=== PATIENT | male | born 1945 | race Caucasian/White ===

== ENCOUNTER 2019-10-01 | Emergency (ER) | payer MEDICARE ==
[2019-10-01] MEDS ORDERED: CHOLESTEROL PILL PO (03:24)
[2019-10-01 04:16] LABS: HEMATOCRIT 44.8 % (39.0-50.0); HEMOGLOBIN 14.9 g/dl (14.0-18.0); IMMATURE GRANULOCYTES 0.2 % (0.0-5.0); MEAN CELL VOLUME 96.6 fL CALC (80.0-100.0); MEAN CORPUSCULAR HGB 32.1 pG CALC (26.0-32.0); MEAN CORPUSCULAR HGB CONC 33.3 g/L CALC (32.0-36.0); NEUT# 5.69 thou/uL (1.82-7.42); RED BLOOD COUNT 4.64 mill/uL (4.70-6.10); RED CELL DISTRI WIDTH 12.8 % (11.5-15.5)
[2019-10-01 04:26] LABS: ACT PARTIAL THROMBO TIME 27.2 SECONDS (20.0-32.5); D-DIMER 0.84 mg/L (0.19-0.60); INTERNATIONAL NORMALIZED RATIO 0.9 RATIO (0.7-1.3); PROTHROMBIN TIME 9.8 SECONDS (9.0-12.5)
[2019-10-01 04:40] LABS: ALBUMIN 4.5 g/dL (3.2-5.0); ALKALINE PHOSPHATASE 80 u/l (38-126); AMYLASE 98 u/l (30-110); ANION GAP 12 (6-22 (CALC)); BUN 12 mg/dL (8-23); BUN/CREATININE RATIO 15 (12-20 (CALC)); CARBON DIOXIDE 28 mmol/l (22-30); CHLORIDE 101 mmol/l (95-108); CREATININE 0.8 mg/dL (0.7-1.3); GFR > 60 ML/MIN (>=60 (CALC)); GFR FOR AFR.AMER. > 60 ML/MIN (>=60 (CALC)); LIPASE 95 u/l (23-300); SGOT/AST 26 u/l (19-48); SODIUM 138 mmol/l (137-146); TOTAL PROTEIN 7.7 g/dL (6.3-8.2)
[2019-10-01 04:52] LABS: MYOGLOBIN 39 ng/mL (0 - 121)
[2019-10-01] MEDS ORDERED: TORADOL PO (06:33)
== END 2019-10-01 06:50 | disposition home or self-care (01) ==
PROVIDERS: Family Medicine
DX: R09.1 Pleurisy (principal); R07.9 Chest pain, unspecified